=== PATIENT | female | born 1950 | race Caucasian/White ===

== ENCOUNTER 2024-10-26 18:15 | Emergency (ER) | payer MEDICARE ==
[~2024-10-26] VITALS: Ht 152.4 cm; Wt 98.4 kg
[2024-10-26 18:57] LABS: BASOPHILS % 0.7 % (0.0-1.0); EOSINOPHILS % 3.0 % (0.0-6.0); LYMPHOCYTES % 17.5 % (18.0-39.1); MONOCYTES % 6.5 % (4.4-11.3); NEUTROPHILS % 71.7 % (38.7-80.0); RED CELL DISTRIBUTION WIDTH 13.9 % (11.7-14.4)
[2024-10-26 19:10] LABS: INR 0.85
[2024-10-26 19:19] LABS: EST GLOMERULAR FILTRATION RATE 70.0 ML/MIN (>=60)
[2024-10-26 19:59] VITALS: PULSE 67; RESP 17; TEMP 98.1
[2024-10-26] MEDS ORDERED: MEDROL4 M2 PO (20:44)
[2024-10-26 20:57] VITALS: BP 147/83; PULSE 63; RESP 17; TEMP 98.1; O2SAT 97
== END 2024-10-26 21:03 | disposition home or self-care (01) ==
LOC: ER 18:35
DX: M19.071 Primary osteoarthritis, right ankle and foot (principal); M54.30 Sciatica, unspecified side; Z88.2 Allergy status to sulfonamides
CPT/HCPCS: 36415; 80048; 85025; 85610; 85730; 93925; 99284